=== PATIENT | male | born 1985 | race Caucasian/White ===

== ENCOUNTER 2024-12-25 04:02 | Emergency (ER) | payer SELFPAY ==
[~2024-12-25] VITALS: Ht 177.8 cm; Wt 81.6 kg
[2024-12-25] MEDS ORDERED: LISINOPRIL20 MG PO (04:19)
[2024-12-25] MEDS ORDERED: GABAPENTIN800 MG PO (10:53)
== END 2024-12-25 05:27 | disposition left against medical advice (07) ==
LOC: ED 04:02
DX: M25.511 Pain in right shoulder (principal); Z79.899 Other long term (current) drug therapy; W10.8XXA Fall (on) (from) other stairs and steps, initial encounter; Y93.89 Activity, other specified; Y92.89 Other specified places as the place of occurrence of the external cause; Y99.8 Other external cause status

== ENCOUNTER 2024-12-25 10:22 | Emergency (ER) | payer SELFPAY ==
[~2024-12-25] VITALS: Ht 177.8 cm; Wt 81.6 kg
[~2024-12-25 10:22] MED LIST: LISINOPRIL20 MG PO
[2024-12-25] MEDS ORDERED: GABAPENTIN800 MG PO (10:53)
[2024-12-25] MEDS ORDERED: Acetaminophen/Oxycodone 5 MG/325 MG TABLET PO ONE (11:10)
[2024-12-25] MEDS ORDERED: Ketamine Hydrochloride 500 MG/10 ML VIAL IV ONE (11:50)
[2024-12-25] MEDS ORDERED: SODIUM CHLORIDE 0.9% 1,000 ML IV ONE ×2 (11:55→12:30)
[2024-12-25] MEDS ORDERED: PROPOFOL 500 MG/50 ML VIAL IV SCH ×2 (12:15→12:20)
[2024-12-25] MEDS ORDERED: PROPOFOL 50 ML IV ONE (12:29)
== END 2024-12-25 13:40 | disposition home or self-care (01) ==
LOC: ED 10:22
DX: S43.004A Unspecified dislocation of right shoulder joint, initial encounter (principal); Z79.899 Other long term (current) drug therapy; W10.8XXA Fall (on) (from) other stairs and steps, initial encounter; Y93.89 Activity, other specified; Y92.89 Other specified places as the place of occurrence of the external cause; Y99.8 Other external cause status

== ENCOUNTER 2025-01-15 19:13 | Emergency (ER) | payer SELFPAY ==
[~2025-01-15] VITALS: Ht 177.8 cm; Wt 81.6 kg
[~2025-01-15 19:13] MED LIST changes: +GABAPENTIN800 MG PO
[2025-01-15] MEDS ORDERED: Bacitracin Zinc 14 GM TUBE T ONE (22:45)
== END 2025-01-15 23:15 | disposition home or self-care (01) ==
LOC: ED 19:13
DX: S01.01XA Laceration without foreign body of scalp, initial encounter (principal); M25.511 Pain in right shoulder; W18.09XA Striking against other object with subsequent fall, initial encounter; Y93.89 Activity, other specified; Y92.096 Garden or yard of other non-institutional residence as the place of occurrence of the external cause; Y99.8 Other external cause status

== ENCOUNTER 2025-01-26 11:25 | Emergency (ER) | payer SELFPAY ==
[~2025-01-26] VITALS: Ht 177.8 cm; Wt 81.6 kg
== END 2025-01-26 12:13 | disposition home or self-care (01) ==
LOC: ED 11:25
DX: S01.01XD Laceration without foreign body of scalp, subsequent encounter (principal); Z48.02 Encounter for removal of sutures; Z79.899 Other long term (current) drug therapy; X58.XXXD Exposure to other specified factors, subsequent encounter

== ENCOUNTER → 2025-01-28 | Outpatient (CLI) | payer SELFPAY | END | disposition home or self-care (01) | LOC: MRI 01-25 03:30 | PROVIDERS: ATTEND Orthopaedic Surgery | DX: S43.492A Other sprain of left shoulder joint, initial encounter (principal); M67.813 Other specified disorders of tendon, right shoulder; X58.XXXA Exposure to other specified factors, initial encounter; Y93.89 Activity, other specified; Y92.89 Other specified places as the place of occurrence of the external cause; Y99.8 Other external cause status ==